=== PATIENT | female | born 1970 | race Caucasian/White ===

== ENCOUNTER 2016-03-24 10:31 | Emergency (ER) | payer OTHER ==
[2016-03-24 10:38] VITALS: TEMP 98.6; O2SAT 96
--- NOTE | 2016-03-24 11:26 | UCPHY ---
H & P Time Seen by Provider: 03/24/16 10:59 Patient Type: Established HPI/ROS: CHIEF COMPLAINT: Sore throat, dry cough HISTORY OF PRESENT ILLNESS: 45-year-old female presents to urgent care with her complaining of sore throat last for 5 days. The patient was recently on a ski vacation with some friends and someone in their democrat had strep. She denies dysphagia. She has an occasional dry cough which just recently started. She denies nasal congestion. She has a little bit of postnasal drip. No chest pain or difficulty breathing. No abdominal pain. No fevers or chills. No vomiting or diarrhea. is sick with URI symptoms as well. REVIEW OF SYSTEMS: Constitutional: No fever, no chills. Eyes: No double or blurry vision. ENT: sore throat. Respiratory: Dry cough as above, no shortness of breath. Cardiac: No chest pain. Gastrointestinal: No abdominal pain, vomiting or diarrhea. Genitourinary: No dysuria. Musculoskeletal: No neck or back pain. Skin: No rashes. Neurological: No headache. Past Medical/Surgical History: Prediabetic, dyslipidemia Social History: Smoking Status: Former smoker Physical Exam: General Appearance: Alert, no distress. Temperature 37.0. Eyes: Pupils equal and round. Extraocular motions are all intact. ENT: Mouth: Mucous membranes moist. Mild posterior pharyngeal injection especially on the right greater than left. No exudate. Small tonsils. No uvular shift or swelling. No muffled voice or trismus. No cervical lymphadenopathy palpated. Respiratory: No wheezing, rhonchi, or rales, lungs are clear to auscultation. Cardiovascular: Regular rate and rhythm. Gastrointestinal: Abdomen is soft and nontender, no masses, no rebound or guarding, bowel sounds normal. Neurological: Alert and oriented x 3, cranial nerves II through XII grossly intact Skin: Warm and dry, no rashes. Musculoskeletal: Nontender to palpate along the cervical, thoracic or lumbar spine. Neck is supple. Extremities: Full range of motion and no peripheral edema. Psychiatric: Patient is oriented X 3, there is no agitation. Constitutional: Initial Vital Signs Temperature (C) 37 C 03/24/16 10:35 Heart Rate 78 03/24/16 10:35 Respiratory Rate 16 03/24/16 10:35 O2 Sat (%) 96 03/24/16 10:35 O2 Delivery Mode Room Air Allergies/Adverse Reactions: No Known Allergies Allergy (Unverified 03/24/16 10:38) Home Medications: Medication Instructions Recorded Hydrocodone/APAP 5/325 [Colony 1 each PO Q4-6PRN PRN #15 tab 03/24/16 5/325 (*)] Supplements 03/24/16 Medical Decision Making ED Course/Re-evaluation: 45-year-old female presents with sore throat. The patient is concerned about possible strep throat. Rapid strep test is pending. Rapid strep test was negative. Patient was encouraged to use anti- inflammatories for pain. She will call for the results of her throat culture in 48 hours. She was instructed to return if she developed difficulty swallowing, increasing pain, or if she felt worse in any way. Differential Diagnosis: Including but not limited to viral upper respiratory infection, strep pharyngitis, mononucleosis, bronchitis, pneumonia, influenza - Data Points Laboratory Results: 03/24/16 03/24/16 Unknown 11:20 Group A Strep Screen NEGATIVE (NEGATIVE) Group A Strep DNA Pending Departure - Departure Disposition: Home, Routine, Self-Care Clinical Impression: Pharyngitis Qualifiers: Pharyngitis/tonsillitis etiology: unspecified etiology Qualifier Code: (J02.9) Acute pharyngitis, unspecified Condition: Good Instructions: Pharyngitis (ED) Additional Instructions: Adult Pain & Fever Control: We recommend Acetaminophen (Tylenol) and Ibuprofen (Motrin,Advil) for pain and fever control. When fever is high or pain severe, both drugs can be used at the same time, but at different intervals. Please note the time differences. Your dose is: Acetaminophen 1000mg every 4 to 6 hours Ibuprofen 600mg every 8 hours with food Note: do not take Acetaminophen with Hydrocodone (Lortab) or Oycodone (Percocet ). These medications also contain Acetaminophen. No more than 3000mg of Acetaminophen should be taken in 24 hours (for an adult). Call [phone] for the results of your throat culture in 48 hours. Hydrocodone for severe pain as directed to help you sleep. Referrals: [facility] [Outside] - As per Instructions Prescriptions: Hydrocodone/APAP 5/325 [Colony 5/325 (*)] 1 each PO Q4-6PRN PRN #15 tab PRN Reason: Pain, Severe - PQRS PQRS Measurement: Not applicable
[2016-03-24 11:49] VITALS: BP 122/74; PULSE 74; RESP 18
== END 2016-03-24 11:53 | disposition home or self-care (01) ==
LOC: CED 10:31
DX: J02.9 Acute pharyngitis, unspecified (principal); R05 Cough; Z87.891 Personal history of nicotine dependence
CPT/HCPCS: 87880-PO; 99214-PO; G0463-PO